=== PATIENT | female | born 1975 | race Caucasian/White ===

== ENCOUNTER 2016-04-15 14:39 | Emergency (ER) | payer SELFPAY ==
--- NOTE | 2016-04-15 15:05 | ER Document Report ---
ED Medical Screen (RME) - General Stated Complaint: COUGH Mode of Arrival: Ambulatory Information source: Patient Notes: Patient reports cough for several weeks and has had some chest pain with this. No fever. hx: None I have greeted and performed a rapid initial assessment of this patient. A comprehensive ED assessment and evaluation of the patient, analysis of test results and completion of the medical decision making process will be conducted by additional ED providers. - Related Data Allergies/Adverse Reactions: codeine Allergy (Verified 04/15/16 15:02) Physical Exam - Vital signs Vitals: Temp Pulse Resp BP Pulse Ox 97.6 F 93 16 127/73 H 96 04/15/16 14:44 04/15/16 14:44 04/15/16 14:44 04/15/16 14:44 04/15/16 14:44 - Respiratory Respiratory status: No respiratory distress Breath sounds: Nonproductive cough. No: Rhonchi, Wheezing Course - Vital Signs Vital signs: Temp Pulse Resp BP Pulse Ox 97.6 F 93 16 127/73 H 96 04/15/16 14:44 04/15/16 14:44 04/15/16 14:44 04/15/16 14:44 04/15/16 14:44
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
[2016-04-16 02:27] VITALS: BP 123/79
== END 2016-04-15 20:20 | disposition home or self-care (01) ==
LOC: ER 14:39
DX: J45.901 Unspecified asthma with (acute) exacerbation (principal); R51 Headache; R05 Cough; M79.671 Pain in right foot; R07.89 Other chest pain; M54.9 Dorsalgia, unspecified; G89.29 Other chronic pain; Z88.5 Allergy status to narcotic agent
CPT/HCPCS: 71020; 99283